=== PATIENT | female | born 1985 | race Caucasian/White ===

== ENCOUNTER → 2021-03-26 | Outpatient (CLI) | payer SELFPAY | LOC: LAB SHORT 17:48 | PROVIDERS: Nurse Practitioner Family | DX: Z12.4 Encounter for screening for malignant neoplasm of cervix (principal) | CPT/HCPCS: G0145 ==

== ENCOUNTER 2021-09-30 07:42 | Day surgery (SDC) | payer OTHER ==
[~2021-09-30] VITALS: Ht 157.5 cm; Wt 55.9 kg
[2021-09-30] MEDS ORDERED: LAMO25 PO (08:13)
--- NOTE | 2021-09-30 08:50 | NUR ---
Ambulatory in Day Surgery. History, Chart, Medications and Allergies reviewed before start of procedure. Lungs clear T/O to Auscultation. Patient States Post-Procedure ride home has been arranged WITH MOM.
--- NOTE | 2021-09-30 10:06 | NUR ---
09/30/21 1006 Reginald Ham DC BOUCHER AT END OF CASE 400CC CLEAR YELLOW URINE IN BOUCHER BAG
--- NOTE | 2021-09-30 11:04 | NUR ---
PATIENT TO DAY SURGERY, BAY 1. DISCHARGE INSTRUCTIONS REVEIWED WITH PATIENT. TOLERATING PO, PAIN PILL GIVEN. PATIENT REPORTED UNSTANDING OF DISCHARGE INSTRUCTIONS. REPORT TO NIKOLAY JERONIMO. MOTHER BEING BROUGHT TO BEDSIDE.
--- NOTE | 2021-09-30 11:26 | NUR ---
Patient up to Ambulate independently. Gait steady. Discharge instructions reviewed with patient. Patient verbalizes understanding. Copy given to patient to take home. Patient States Post-Procedure ride home has been arranged. Discharged via wheelchair to private car for ride home.
== END 2021-09-30 23:51 | disposition home or self-care (01) ==
LOC: ORSCMMR 07:42 → ORD 08:45 → ORSCMMR 08:45
PROVIDERS: Obstetrics & Gynecology
PROC: 0UT74ZZ Resection of Bilateral Fallopian Tubes, Percutaneous Endoscopic Approach (ICD-10-PCS; principal; 2021-09-30 09:15)
DX: Z30.2 Encounter for sterilization (principal); Z87.891 Personal history of nicotine dependence; E03.9 Hypothyroidism, unspecified; Z79.899 Other long term (current) drug therapy
CPT/HCPCS: 88302; A9270; J1100; J1170; J1885; J2250; J2405; J2704; J3010; J7120

== ENCOUNTER → 2023-03-12 | Outpatient (CLI) | payer OTHER ==
[~2023-03-12] MED LIST: LAMO25 PO
[2023-03-20 22:59] LABS: HPV GENOTYPE 16 Not Detected; HPV GENOTYPE 18 Not Detected; HPV HIGH RISK Detected; HPV SOURCE Vaginal
== END ==
LOC: LAB 09:39 → LAB SHORT 09:39
PROVIDERS: Obstetrics & Gynecology
DX: Z01.419 Encounter for gynecological examination (general) (routine) without abnormal findings (principal)
CPT/HCPCS: 87624; G0123

== ENCOUNTER → 2023-03-12 | Outpatient (CLI) | payer OTHER | LOC: LAB 10:53 → LAB SHORT 10:53 | DX: D26.0 Other benign neoplasm of cervix uteri (principal) | CPT/HCPCS: 88305 ==

== ENCOUNTER → 2024-03-30 | Outpatient (CLI) | payer OTHER ==
[2024-04-06 10:31] LABS: HPV HIGH RISK BY TMA Detected; HPV SOURCE Vaginal
[2024-04-06 23:37] LABS: HPV GENOTYPE 16 BY TMA Not Detected; HPV GENOTYPE 18/45 BY TMA Not Detected; HPVG SOURCE Vaginal
== END | disposition home or self-care (01) ==
LOC: LAB 15:11 → LAB SHORT 15:11
PROVIDERS: Obstetrics & Gynecology
DX: Z01.419 Encounter for gynecological examination (general) (routine) without abnormal findings (principal)
CPT/HCPCS: 87624; 87625; G0123